=== PATIENT | male | born 1960 | race Caucasian/White ===

== ENCOUNTER 2022-04-18 20:06 | Emergency (ER) | payer SELFPAY ==
--- NOTE | 2022-04-18 21:00 | NUR ---
Patient was just called to be triaged at this time due to short staffing in the ER and every ER beds occupied but patient was not present in the waiting room or outside of ER.
--- NOTE | 2022-04-18 21:45 | NUR ---
Patient was called to be triaged but was not present in the waiting room or outside of ER. Patient was not triaged or seen by ERMD.
== END 2022-04-18 21:45 | disposition left against medical advice (07) ==
LOC: ER 20:09
DX: Z53.21 Procedure and treatment not carried out due to patient leaving prior to being seen by health care provider (principal)